=== PATIENT | female | born 1980 | race Two or more races ===

== ENCOUNTER 2021-11-30 02:35 | Inpatient (IN) | payer OTHER ==
[~2021-11-30] VITALS: Ht 152.4 cm; Wt 2.7 kg
[2021-11-30] MEDS ORDERED: FOLIC ACID20 MG (02:43)
[2021-11-30] MEDS ORDERED: PRENATAL TABLE1 EAC1 PO (02:44)
[2021-11-30] MEDS ORDERED: IRON236 MG (02:44)
[2021-12-01] MEDS ORDERED: FLOVENT HFA10.6 GM (08:03)
[2021-12-01] MEDS ORDERED: MONTELUKAST SOD10 MG (08:03)
== END 2021-12-03 13:04 | disposition home or self-care (01) | DRG 785 ==
LOC: LDR 02:35 → SURG-SUITE 02:35 → OB/GYN 02:35 → O/R 13:45 → OB/GYN 14:47 → SURG-SUITE 18:07
PROVIDERS: Obstetrics & Gynecology; ADMIT Obstetrics & Gynecology Maternal & Fetal Medicine; ATTEND Obstetrics & Gynecology Maternal & Fetal Medicine
PROC: 0UB70ZZ Excision of Bilateral Fallopian Tubes, Open Approach (ICD-10-PCS; 2021-11-30)
PROC: 4A1HXFZ Monitoring of Products of Conception, Cardiac Rhythm, External Approach (ICD-10-PCS; 2021-11-30)
PROC: 10D00Z1 Extraction of Products of Conception, Low, Open Approach (ICD-10-PCS; principal; 2021-11-30 12:00)
DX: O45.8X3 Other premature separation of placenta, third trimester (principal); Z30.2 Encounter for sterilization; Z3A.37 37 weeks gestation of pregnancy; Z37.0 Single live birth